=== PATIENT | female | born 1950 | race Caucasian/White ===

== ENCOUNTER 2021-12-17 12:36 | Emergency (ER) | payer MEDICARE ==
[~2021-12-17] VITALS: Ht 165.1 cm; Wt 74.8 kg
[~2021-12-17 12:36] MED LIST: AMIT50 PO; Adult Low Dose81 MG PO; GABA300 PO; METO25ER PO; OMEP20ER PO
[2021-12-17 13:29] LABS: BASOPHILS PERCENT AUTO 1 % (0-2); EOSINOPHILS ABSOLUTE AUTO 0.13 K/mm3 (0.00-0.68); EOSINOPHILS PERCENT AUTO 2 % (0-6); Hematocrit 47.1 % (33.0-51.0); Hemoglobin 15.6 g/dL (11.5-16.0); IMMATURE GRAN ABSOLUTE AUTO 0.03 K/mm3 (0.00-0.10); IMMATURE GRAN PERCENT AUTO 0 % (0-1); LYMPHOCYTES ABSOLUTE AUTO 0.49 K/mm3 (0.84-5.20); LYMPHOCYTES PERCENT AUTO 6 % (21-46); MONOCYTES ABSOLUTE AUTO 0.59 K/mm3 (0.16-1.47); MONOCYTES PERCENT AUTO 7 % (4-13); Mean Corpuscular HGB 32.4 pg (26.0-34.0); Mean Corpuscular HGB Conc 33.1 g/dL (31.5-36.5); Mean Corpuscular Volume 98 fL (80-100); Mean Platelet Volume 10.2 fL (9.1-12.4); NEUTROPHILS ABSOLUTE AUTO 6.87 K/mm3 (1.96-9.15); NEUTROPHILS PERCENT AUTO 84 % (41-73); Platelet Count 210 K/mm3 (150-400); RDW Coefficient Variation 12.4 % (11.7-14.2); RDW Standard Deviation 44.9 fL (35.1-46.3); Red Blood Cell Count 4.81 M/mm3 (3.80-5.20); White Blood Cell Count 8.21 K/mm3 (4.00-11.30)
[2021-12-17] MEDS ORDERED: ONDA4 PO (13:31)
[2021-12-17 14:03] LABS: Albumin, Blood 4.1 g/dL (3.4-5.0); Albumin/Globulin Ratio 1.2 (0.8-1.8); Bilirubin, Total 1.4 mg/dL (0.1-1.0); Calcium, Blood 9.7 mg/dL (8.5-10.1); Creatinine, Blood 0.62 mg/dL (0.40-1.00); Globulin, Blood 3.3 g/dL (2.2-4.0); Potassium, Blood 4.2 mmol/L (3.5-5.5); Total Protein, Blood 7.4 g/dL (6.4-8.2)
[2021-12-17 15:50] LABS: Influenza A, PCR NEGATIVE (NEGATIVE); Influenza B, PCR NEGATIVE (NEGATIVE); Resp Syncytial Virus, PCR NEGATIVE (NEGATIVE); SARS-Cov-2 (COVID-19) PCR, MMC NEGATIVE (NEGATIVE)
[2021-12-17] MEDS ORDERED: ALBU90OI INH (16:13)
[2021-12-17] MEDS ORDERED: Prednisone20 MG PO (16:13)
== END 2021-12-17 16:57 | disposition home or self-care (01) ==
LOC: ER 12:36
PROVIDERS: Emergency Medicine; Physician Assistant
DX: J45.909 Unspecified asthma, uncomplicated (principal); Z20.822 Contact with and (suspected) exposure to COVID-19
CPT/HCPCS: 0241U; 36415; 71045; 80053; 83880; 85025; 94640; 94664; J2930

== ENCOUNTER 2022-02-05 08:19 | Emergency (ER) | payer MEDICARE ==
[~2022-02-05] VITALS: Ht 165.1 cm; Wt 74.8 kg
[~2022-02-05 08:19] MED LIST changes: +ALBU90OI INH; +ONDA4 PO; +Prednisone20 MG PO
[2022-02-05] MEDS ORDERED: IBUP800 PO (10:59)
[2022-02-05] MEDS ORDERED: FAMO20 PO (10:59)
== END 2022-02-05 11:24 | disposition home or self-care (01) ==
LOC: ER 08:19
DX: S83.91XA Sprain of unspecified site of right knee, initial encounter (principal); X50.1XXA Overexertion from prolonged static or awkward postures, initial encounter; J45.909 Unspecified asthma, uncomplicated; W19.XXXA Unspecified fall, initial encounter; Z79.899 Other long term (current) drug therapy
CPT/HCPCS: 29505; 73562-RT; 96372; 99283-25; A9270; J1885

== ENCOUNTER → 2025-02-13 | Outpatient (CLI) | payer MEDICARE ==
[~2025-02-13] MED LIST changes: +FAMO20 PO; +IBUP800 PO
== END | disposition home or self-care (01) ==
LOC: LAB 19:52 → LAB SHORT 19:52
PROVIDERS: Physician Assistant
DX: N93.9 Abnormal uterine and vaginal bleeding, unspecified (principal)
CPT/HCPCS: 87624; G0145